=== PATIENT | male | born 1970 | race Caucasian/White ===

== ENCOUNTER 2022-02-17 13:29 | Emergency (ER) | payer OTHER ==
[~2022-02-17] VITALS: Ht 177.8 cm; Wt 130.0 kg
[2022-02-17] MEDS ORDERED: KETOROLAC 60MG/2ML VIAL IM ONE (15:00)
[2022-02-17] MEDS ORDERED: LIDOCAINE 5% PATCH TOP SCH (15:00)
[2022-02-17 15:07] VITALS: BP 119/75
[2022-02-17] MEDS ORDERED: ACET-2708 MT (16:09)
[2022-02-17] MEDS ORDERED: LIDO700A30 TP (16:11)
== END 2022-02-17 16:38 | disposition home or self-care (01) ==
LOC: ER 13:29
DX: M25.561 Pain in right knee (principal); M25.571 Pain in right ankle and joints of right foot; M54.50 Low back pain, unspecified; W01.0XXA Fall on same level from slipping, tripping and stumbling without subsequent striking against object, initial encounter; Y93.89 Activity, other specified; Y92.512 Supermarket, store or market as the place of occurrence of the external cause
CPT/HCPCS: 73562; 73610; 96372; 99284; J1885

== ENCOUNTER 2022-05-13 06:04 | Emergency (ER) | payer MEDICAID, OTHER ==
[~2022-05-13] VITALS: Ht 188 cm; Wt 110.0 kg
[~2022-05-13 06:04] MED LIST: ACET-2708 MT; LIDO700A30 TP
[2022-05-13] MEDS ORDERED: DIPHENHYDRAMINE 50MG CAPSULE PO ONE (06:30)
[2022-05-13 06:40] LABS: BASOPHILS % 0.4 % (0.0-2.0); HEMATOCRIT. 42.7 % (42.0-52.0); HEMOGLOBIN. 14.5 g/dL (14.0-18.0); LYMPHOCYTES % 34.7 % (20.0-50.0); MEAN CORPUSCULAR HEMOGLOBIN 30.2 pg (28.0-32.0); MEAN CORPUSCULAR VOLUME 88.7 fL (80.0-94.0); MEAN PLATELET VOLUME 10.3 fl (7.4-10.4); MONOCYTES % 10.1 % (2.0-8.0); NEUTROPHILS % 52.8 % (40.0-76.0); PLATELET 184 x1000/uL (130-400); RED BLOOD CELL COUNT 4.82 mill/uL (4.7-6.1); RED CELL DISTRIBUTION WIDTH 14.7 % (11.6-14.6)
[2022-05-13 06:46] LABS: CHLORIDE 106 mEq/L (98-107)
[2022-05-13] MEDS ORDERED: POTASSIUM CHLORIDE 20MEQ TABLET SR PO ONE (08:15)
[2022-05-13] MEDS ORDERED: P50 MT (08:53)
[2022-05-13] MEDS ORDERED: B50 MT (08:53)
[2022-05-13 10:05] VITALS: BP 118/69
== END 2022-05-13 10:17 | disposition home or self-care (01) ==
LOC: ER 06:04
DX: T78.40XA Allergy, unspecified, initial encounter (principal); I10 Essential (primary) hypertension; J44.1 Chronic obstructive pulmonary disease with (acute) exacerbation; Z88.6 Allergy status to analgesic agent; Z90.49 Acquired absence of other specified parts of digestive tract; X58.XXXA Exposure to other specified factors, initial encounter
CPT/HCPCS: 36415; 71045; 80053; 83880; 84484; 85025; 99284; Q0163

== ENCOUNTER 2022-12-06 18:31 | Emergency (ER) | payer OTHER, MEDICAID ==
[~2022-12-06] VITALS: Ht 188 cm; Wt 114.0 kg
[~2022-12-06 18:31] MED LIST changes: +B50 MT; +P50 MT
[2022-12-06 18:51] VITALS: BP 127/78
[2022-12-06] MEDS ORDERED: ACETAMINOPHEN 325MG TABLET PO ONE (19:15)
[2022-12-06] MEDS ORDERED: ACET-2708 MT (19:51)
[2022-12-06] MEDS ORDERED: DIPHENHYDRAMINE 50MG/ML VIAL ONE (23:28)
== END 2022-12-06 20:00 | disposition home or self-care (01) ==
LOC: ER 18:31
DX: M79.671 Pain in right foot (principal); M79.672 Pain in left foot; M77.32 Calcaneal spur, left foot; M77.31 Calcaneal spur, right foot; J44.9 Chronic obstructive pulmonary disease, unspecified; I10 Essential (primary) hypertension; F41.9 Anxiety disorder, unspecified
CPT/HCPCS: 73630; 99283; J1200

== ENCOUNTER 2022-12-06 21:56 | Emergency (ER) | payer OTHER, MEDICAID ==
[~2022-12-06] VITALS: Ht 177.8 cm; Wt 136.0 kg
[2022-12-06 23:25] LABS: BASOPHILS % 0.5 % (0.0-2.0); EOSINOPHILS % 1.6 % (0.0-5.0); HEMOGLOBIN. 14.3 g/dL (14.0-18.0); LYMPHOCYTES % 18.5 % (20.0-50.0); MEAN CORPUSCULAR HEMOGLOBIN 29.7 pg (28.0-32.0); MEAN CORPUSCULAR VOLUME 87.3 fL (80.0-94.0); MEAN PLATELET VOLUME 10.9 fl (7.4-10.4); MONOCYTES % 7.8 % (2.0-8.0); NEUTROPHILS % 71.6 % (40.0-76.0); PLATELET 239 x1000/uL (130-400)
[2022-12-06 23:26] LABS: CLARITY URINE CLEAR (CLEAR); COLOR URINE YELLOW (YELLOW); KETONES URINE TRACE (NEGATIVE); LEUKOCYTE ESTERASE URINE NEGATIVE (NEGATIVE); NITRITE URINE NEGATIVE (NEGATIVE); OCCULT BLOOD URINE 2+ (NEGATIVE); PH URINE 5.5 (4.5-8.0); PROTEIN URINE 1+ (NEGATIVE); SPECIFIC GRAVITY URINE 1.021 (1.005-1.030)
[2022-12-06] MEDS ORDERED: DIPHENHYDRAMINE 50MG CAPSULE PO ONE (23:30)
[2022-12-06 23:33] LABS: CHLORIDE 106 mEq/L (98-107)
[2022-12-06 23:37] LABS: *AMPHETAMINES SCREEN URINE PRESUMTIVE POSITIVE (NEGATIVE); *BARBITURATES SCREEN URINE NEGATIVE (NEGATIVE); *BENZODIAZEPINES SCREEN URINE NEGATIVE (NEGATIVE); *COCAINE SCREEN URINE NEGATIVE (NEGATIVE); CANNABINOID URINE SCREEN NEGATIVE (NEGATIVE); METHADONE URINE SCREEN NEGATIVE (NEGATIVE); OPIATES URINE SCREEN NEGATIVE (NEGATIVE); PHENCYCLIDINE URINE SCREEN NEGATIVE (NEGATIVE)
[2022-12-06 23:42] LABS: ETHANOL BLOOD < 10 mg/dL
[2022-12-07] MEDS: QUETIAPINE FUMARATE 25MG TABLET PO SCH ×2 (12:00→21:42)
[2022-12-08] MEDS: QUETIAPINE FUMARATE 25MG TABLET PO SCH (09:25)
[2022-12-08 13:58] LABS: BASOPHILS % 0.4 % (0.0-2.0); EOSINOPHILS % 1.7 % (0.0-5.0); HEMOGLOBIN. 15.5 g/dL (14.0-18.0); LYMPHOCYTES % 22.8 % (20.0-50.0); MEAN CORPUSCULAR HEMOGLOBIN 30.3 pg (28.0-32.0); MEAN CORPUSCULAR VOLUME 88.2 fL (80.0-94.0); MEAN PLATELET VOLUME 10.3 fl (7.4-10.4); MONOCYTES % 9.2 % (2.0-8.0); NEUTROPHILS % 65.9 % (40.0-76.0); PLATELET 183 x1000/uL (130-400); RED CELL DISTRIBUTION WIDTH 13.9 % (11.6-14.6)
[2022-12-08 14:00] VITALS: BP 107/70
[2022-12-08 14:04] LABS: CHLORIDE 112 mEq/L (98-107)
== END 2022-12-08 14:45 ==
LOC: ER 21:56
DX: R45.851 Suicidal ideations (principal); M79.671 Pain in right foot; M79.672 Pain in left foot; E11.9 Type 2 diabetes mellitus without complications; I10 Essential (primary) hypertension; F17.200 Nicotine dependence, unspecified, uncomplicated; Z20.822 Contact with and (suspected) exposure to COVID-19
CPT/HCPCS: 36415; 80053; 80305; 80307; 80320; 80329; 81003; 85025; 87426; 99285; C9803; Q0163; G0480